=== PATIENT | male | born 1975 | race Caucasian/White ===

== ENCOUNTER → 2017-06-20 | Outpatient (CLI) | payer MEDICAID ==
[~2017-06-20] MED LIST: ASPIRIN 81MG TA81 MG PO; COREG 6.25MG6.25 MG PO; NEURONTIN600 MG PO; PERCOCET 325 MG1 TA3 PO; XANAX 1MG TABLET1 MG PO; ZANAFLEX4 MG NG
[2017-06-20 13:57] LABS: AMPHETAMINES/METAMPHETAMINES NEGATIVE ng/mL (<1000)
== END ==
LOC: LAB 12:49
PROVIDERS: Emergency Medicine
DX: Z79.899 Other long term (current) drug therapy (principal)